=== PATIENT | male | born 1955 | race Caucasian/White ===

== ENCOUNTER 2017-06-01 15:52 | Emergency (ER) | payer BC ==
[2017-06-01 16:20] VITALS: BMI 28.3
--- NOTE | 2017-06-01 16:30 | ED PDOC ---
HPI: General Adult Time Seen by Provider: 06/01/17 16:01 Chief Complaint (Nursing): ENT Problem History Per: Patient History/Exam Limitations: no limitations Onset/Duration Of Symptoms: Days Current Symptoms Are (Timing): Still Present Severity: Moderate Additional History Per: Patient Additional Complaint(s): 62 y/o male with history of cerumen impaction who complains of bilateral ear fullness that began this morning. He denies pain, fever, or other complaints. Patient suspected cerumen impaction and did dry Debrox without improvement. No other complaints at this time. Past Medical History - Medical History PMH: HTN - Family History Family History: States: No Known Family Hx - Immunization History Hx Tetanus Toxoid Vaccination: No Hx Influenza Vaccination: No Hx Pneumococcal Vaccination: No - Home Medications Home Medications: Ambulatory Orders Medication Instructions Recorded Alprazolam [Xanax] 0.5 mg PO BID 02/01/16 Amoxicillin [Amoxil 500 mg Cap] 500 mg PO Q8 #30 cap 06/01/17 Ofloxacin Otic 0.3% [Floxin 0.3% 10 drop DAILY #1 bottle 06/01/17 Otic Soln] - Allergies Allergies/Adverse Reactions: Allergies Allergy/AdvReac Type Severity Reaction Status Date / Time No Known Allergies Allergy Verified 02/01/16 14:10 Review of Systems Constitutional: Negative for: Fever ENT: Positive for: Other (Ear Fullness). Negative for: Ear Pain Physical Exam - Physical Exam Appears: Positive for: Well, No Acute Distress Skin: Positive for: Normal Color, Warm, Dry ENT: Positive for: TM Is/Are (right, normal. Left is erythematous and bulging. Left canal is also erythematous and mildly edematous.). Negative for: Nasal Congestion, Pharyngeal Erythema, Tonsillar Exudate, Tonsillar Swelling Medical Decision Making Medical Decision Making: Discussion: Left canal is edematous and erythematous. Left Tm is partially visualized and is bulging and erythematous. Patient given prescription for Ofloxacin and Amoxicillin. Recommended that he follow up with ENT and his PMD. All questions answered. Patient discharged in stable condition. ~ Scribe Attestation: Documented by~Susan Duvall, acting as a scribe for LESTER Meza. Provider Scribe Attestation: All medical record entries made by the Scribe were at my direction and personally dictated by me. I have reviewed the chart and agree that the record accurately reflects my personal performance of the history, physical exam, medical decision making, and the department course for this patient. I have also personally directed, reviewed, and agree with the discharge instructions and disposition. Disposition - Clinical Impression Clinical Impression: Otitis media, Otitis externa - Patient ED Disposition Is Patient to be Admitted: No Counseled Patient/Family Regarding: Diagnosis, Need For Followup - Disposition Referrals: [facility] [place] [Outside] [facility] [Outside] Jimi Arias MD [Staff Provider] - Disposition: Routine/Home Disposition Time: 16:20 Condition: STABLE Prescriptions: Amoxicillin [Amoxil 500 mg Cap] 500 mg PO Q8 #30 cap Ofloxacin Otic 0.3% [Floxin 0.3% Otic Soln] 10 drop DAILY #1 bottle Instructions: Otitis Externa (ED), Otitis Media (ED) Forms: [facility] (Citizen [place]) Print Language: HEBREW
== END 2017-06-01 16:49 | disposition home or self-care (01) ==
LOC: H.ER 15:52
DX: H60.93 Unspecified otitis externa, bilateral (principal); I10 Essential (primary) hypertension